=== PATIENT | male | born 1985 | race Caucasian/White ===

== ENCOUNTER 2017-07-02 19:07 | Emergency (ER) | payer SELFPAY ==
[2017-07-02] MEDS: ACETAMINOPHEN 500 MG TABLET PO (19:55)
[2017-07-02] MEDS: ONDANSETRON ODT 4 MG TAB.RAPDIS. PO (19:55)
== END 2017-07-02 19:51 | disposition home or self-care (01) ==
LOC: ER 19:07
DX: J11.1 Influenza due to unidentified influenza virus with other respiratory manifestations (principal); F10.20 Alcohol dependence, uncomplicated; F41.9 Anxiety disorder, unspecified; J45.909 Unspecified asthma, uncomplicated
CPT/HCPCS: 99283; Q0162

== ENCOUNTER 2018-12-08 23:04 | Emergency (ER) | payer SELFPAY ==
[~2018-12-08] VITALS: Ht 177.8 cm; Wt 86.2 kg
[2018-12-08 23:10] VITALS: BP 114/71
[2018-12-09] MEDS ORDERED: methylPREDNISolone SOD SUCC PF 125 MG/2 ML VIAL. IM ONE
[2018-12-09] MEDS ORDERED: KETOROLAC 30 MG/ML VIAL. IM ONE
[2018-12-09] MEDS ORDERED: ORPHENADRINE CITRATE 60 MG/2 ML VIAL. IM ONE
[2018-12-09] MEDS ORDERED: ORPH100T PO (00:05)
--- NOTE | 2018-12-09 00:05 | PHYS DOC ---
Past Medical History Past Medical History: Alcoholism, Anxiety, Asthma, Other Additional Past Medical Histor: heart palpitations Past Surgical History: No Surgical History Alcohol Use: Heavy Drug Use: None Adult General Chief Complaint Chief Complaint: LOWER BACK PAIN OR INJURY [facility] HPI Patient is a 33 year old MALE PRESENTS FOR EVAL OF LOW BACK PAIN SINCE THURSDAY. REPORTS HE REACHED FOR SOMETHING AND HAS HAD PAIN IN HIS BACK SINCE THAT TIME. DENIES FALL. HE SAW A CHIROPRACTOR YESTERDAY AND HAD AN ADJUSTMENT BUT SYMPTOMS HAVEN'T RESOLVED. HE FEELS SPASMS IN HIS BACK THAT WAKE HIM UP AT NIGHT. HE DENIES LOSS OF BLADDER OR BOWEL FUNCTION, NUMBNESS OR TINGLING. Review of Systems Review of Systems Constitutional: Denies fever or chills [] Eyes: Denies change in visual acuity, redness, or eye pain [] HENT: Denies nasal congestion or sore throat [] Respiratory: Denies cough or shortness of breath [] Cardiovascular: No additional information not addressed in HPI [] GI: Denies abdominal pain, nausea, vomiting, bloody stools or diarrhea [] : Denies dysuria or hematuria [] Musculoskeletal: Denies back pain or joint pain [] Integument: Denies rash or skin lesions [] Neurologic: Denies headache, focal weakness or sensory changes [] Endocrine: Denies polyuria or polydipsia [] All other systems were reviewed and found to be within normal limits, except as documented in this note. Current Medications Current Medications Current Medications Medications (Trade) Dose Ordered Sig/[facility] Start Time Stop Time Status Last Admin Dose Admin Ketorolac Tromethamine (Toradol 30mg Vial) 30 mg 1X ONCE 12/09/18 00:00 12/09/18 00:01 DC 12/09/18 00:02 30 MG Methylprednisolone Sodium Succinate (SOLU-Medrol 125MG VIAL) 125 mg 1X ONCE 12/09/18 00:00 12/09/18 00:01 DC 12/09/18 00:02 125 MG Orphenadrine Citrate (Norflex) 60 mg 1X ONCE 12/09/18 00:00 12/09/18 00:01 DC 12/09/18 00:02 60 MG Allergies Allergies Allergies Coded Allergies Type Severity Reaction Last Updated Verified No Known Drug Allergies 08/20/13 No Physical Exam Physical Exam Constitutional: Well developed, well nourished, non-toxic appearance, IN PAIN. [] Neck: Normal range of motion, no tenderness, supple, no stridor. [] Cardiovascular:Heart rate regular rhythm, no murmur [] Lungs & Thorax: Bilateral breath sounds clear to auscultation [] Skin: Warm, dry, no erythema, no rash. [] Back: TTP DIFFUSE LUMBAR, NO STEP OFFS, PALPABLE SPASM IN LUMBAR, no CVA tenderness. [] Extremities: No tenderness, no cyanosis, no clubbing, ROM intact, no edema. [] Neurologic: Alert and oriented X 3, normal motor function, normal sensory function, no focal deficits noted. [] Psychologic: Affect normal, judgement normal, mood normal. [] Current Patient Data Vital Signs Vital Signs Date Time Temp Pulse Resp B/P (MAP) Pulse Ox O2 Delivery O2 Flow Rate FiO2 12/08/18 23:10 97.9 86 18 114/71 (85) 98 Room Air 97.9 EKG EKG [] Radiology/Procedures Radiology/Procedures [] Course & Med Decision Making Course & Med Decision Making Pertinent Labs and Imaging studies reviewed. (See chart for details) [F/U C PCP 2-3 DAYS, NO S/S OF CAUDA EQUINA] Dragon Disclaimer Dragon Disclaimer This electronic medical record was generated, in whole or in part, using a voice recognition dictation system. Departure Departure Impression: Primary Impression: Back pain Disposition: HOME, SELF-CARE Condition: STABLE Referrals: NO PCP (PCP) Patient Instructions: Back Pain, Adult Scripts Orphenadrine Citrate (ORPHENADRINE CITRATE) 100 Mg Tablet.er 1 TAB PO BID, #20 TAB 1 Refill Prov: AZEB FIGUEROA APRN 12/09/18 Problem Qualifiers Primary Impression: Back pain Back pain location: low back pain Chronicity: acute Back pain laterality: bilateral Sciatica presence: without sciatica Qualified Codes: M54.5 - Low back pain AZEB FIGUEROA APRN Dec 09, 2018 00:05
== END 2018-12-09 00:40 | disposition home or self-care (01) ==
LOC: ER 23:04
DX: M54.5 Low back pain (principal); F41.9 Anxiety disorder, unspecified; J45.909 Unspecified asthma, uncomplicated; F10.20 Alcohol dependence, uncomplicated; Y90.9 Presence of alcohol in blood, level not specified
CPT/HCPCS: 96372; 99284; J1885; J2360; J2930